=== PATIENT | male | born 1985 | race Caucasian/White ===

== ENCOUNTER 2019-02-26 15:01 | Inpatient (IN) | payer OTHER ==
[2019-02-26 18:05] VITALS: BMI 28.5
--- NOTE | 2019-02-26 19:21 | HP ---
COWS - Scale Resting Pulse: 2= HI 101-120 Sweatin= No chills or Flushing Restless Observation: 1= Difficult to Sit Still Pupil Size: 0= Normal to Room Light Bone or Joint Aches: 0= None Runny Nose/ Eye Tearin= None GI Upset > 30mins: 0= None Tremor Observation: 2= Slight Tremor Visible Yawning Observation: 0= None Anxiety or Irritability: 1=Feels Anxious/Irritable Goose Flesh Skin: 0=Smooth Skin COWS Score: 6 CIWA Score Nausea/Vomitin-Mild Nausea/No Vomiting Muscle Tremors: 4-Moderate,w/Arms Extend Anxiety: 2 Agitation: 3 Paroxysmal Sweats: 1-Minimal Palms Moist Orientation: 0-Oriented Tacttile Disturbances: 0-None Auditory Disturbances: 0-None Visual Disturbances: 1-Very Mild Sensitivity Headache: 1-Very Mild CIWA-Ar Total Score: 13 - Admission Criteria [facility] Guidelines: Admission for Medically Managed Detox: Requires at least one of the followin. CIWA greater than 12 2. Seizures within the past 24 hours 3. Delirium tremens within the past 24 hours 4. Hallucinations within the past 24 hours 5. Acute intervention needed for co occurring medical disorder 6. Acute intervention needed for co occurring psychiatric disorder 7. Severe withdrawal that cannot be handled at a lower level of care (continued vomiting, continued diarrhea, abnormal vital signs) requiring intravenous medication and/or fluids 8. Admission [facility] Chief Complaint: alcohol detox Allergies/Adverse Reactions: Allergies Allergy/AdvReac Type Severity Reaction Status Date / Time No Known Allergies Allergy Verified 02/26/19 17:52 History of Present Illness: Patient is a 33 yo M with no known PMhx presenting for alcohol detox Patient has been drinking heavy for 15 years. Drinks about 1-2 pints of liquor and a few 100 oz of beer a day. Last drink this morning. No hx of seizures. Has blacked out. Patient started using heroin 7/8 years ago. Denies IV use. Says he does not use heroin daily, just occasionally. Used about 8 bags in the last week. 3 bags this morning. He has narcan that he carries in a bag. Says he never overdosed. Does cocaine 3x a week. About 50-100 a day. Smokes 5 cigs a week. Does not want nicotine patch. Currently unemployed. Lives in an apartment with roommates. Exam Limitations: No Limitations - Ebola screening Have you traveled outside of the country in the last 21 days: No (N) Have you had contact with anyone from an Ebola affected area: No Do you have a fever: No - Review of Systems Constitutional: Loss of Appetite Respiratory: denies: Cough, Shortness of Breath Cardiac: denies: Chest Pain, Edema Patient History - Smoking Cessation Smoking history: Current some day smoker Initiated information on smoking cessation: Yes 'Breaking Loose' booklet given: 02/26/19 - Substances abused Heroin Substance route: Inhalation Frequency: 1-2 times per week Amount used: 2 bags/episode Age of first use: 25 Date of last use: 02/26/19 Cocaine Substance route: Inhalation Frequency: 3-6 times per week Amount used: 2 grams Age of first use: 16 Date of last use: 02/26/19 PCP Substance route: Smoking Frequency: 1-2 times per week Amount used: $100 Age of first use: 15 Date of last use: 02/12/19 Benzodiazepine (Klonopin) Substance route: Oral Frequency: 1-3 times last 30 days Amount used: 10 pills Age of first use: 15 Date of last use: 02/19/19 Family Disease History - Family Disease History Family Disease History: Diabetes: Father, Heart Disease: Father Admission Physical Exam [facility] - Vital Signs Vital Signs: Vital Signs - 24 hr 02/26/19 17:56 Temperature 98.0 F Pulse Rate 110 H Respiratory 17 Rate Blood Pressure 135/93 - Physical General Appearance: Yes: Anxious HEENTM: Yes: Other (injected conjunctiva) Respiratory: Yes: No Respiratory Distress, No Accessory Muscle Use Neck: Yes: Supple Cardiology: Yes: Regular Rhythm, S1, S2 Abdominal: Yes: Non Tender, Soft Extremities: No: Swelling Neurological: Yes: Alert - Diagnostic (1) Alcohol abuse Current Visit: Yes Status: Acute (2) Heroin use Current Visit: Yes Status: Acute (3) Cocaine abuse Current Visit: Yes Status: Acute (4) Marijuana smoker Current Visit: Yes Status: Acute Breathalyzer - Breathalyzer Breathalyzer: 0.224 Urine Drug Screen - Test Device Lot number: [id number] Expiration date: 12/06/20 - Control Is test valid?: Yes - Results Drug screen NEGATIVE: No Urine drug screen results: THC-Marijuana, KAE-Cocaine, FEN-Fentanyl, MOP-Opiates , OXY-Oxycodone Inpatient Rehab Admission - Rehab Decision to Admit Inpatient rehab admission?: No
[2019-02-26] MEDS ORDERED: IBUPROFEN 400 MG TABLET (FP) PO PRN (19:54)
[2019-02-26] MEDS ORDERED: MAGNESIUM CITRATE 300 ML BOTTLE PO PRN (19:54)
[2019-02-26] MEDS ORDERED: MAGNESIUM HYDROX 2400MG/30ML ORAL SUSPENSION 30 ML CUP PO PRN (19:54)
[2019-02-26] MEDS ORDERED: hydrOXYzine HCL 25 MG TABLET (FP) PO PRN (19:54)
[2019-02-26] MEDS ORDERED: BISMUTH SUBSALICYLATE 524 MG/30 ML UD PO PRN (19:54)
[2019-02-26] MEDS ORDERED: diazePAM 5 MG TABLET PO ONE (19:54)
[2019-02-26] MEDS ORDERED: MAG HYDROX/AL HYDROX/SIMETH 30 ML UNIT-DOSE CUP PO PRN (19:54)
[2019-02-26] MEDS ORDERED: METHOCARBAMOL 500 MG TABLET PO PRN (19:54)
[2019-02-26] MEDS ORDERED: ACETAMINOPHEN 325 MG TABLET (FP) PO PRN ×2 (19:54)
[2019-02-26] MEDS ORDERED: MENTHOL/PHENOL 1 EACH UD MM PRN (19:54)
[2019-02-26] MEDS ORDERED: MELATONIN 5 MG TABLETS PO PRN (19:54)
[2019-02-26] MEDS ORDERED: diazePAM 5 MG TABLET PO PRN (19:54)
--- NOTE | 2019-02-26 20:01 | PN ---
Teaching Attending Note Name of Resident: Sybil Fernandez ATTENDING PHYSICIAN STATEMENT I saw and evaluated the patient. I reviewed the resident's note and discussed the case with the resident. I agree with the resident's findings and plan as documented. SUBJECTIVE: 33 yo here for AUD treatment OBJECTIVE: Vital Signs - 24 hr 02/26/19 17:56 Temperature 98.0 F Pulse Rate 110 H Respiratory 17 Rate Blood Pressure 135/93 alert and oriented tremulous ASSESSMENT AND PLAN: Pt to be started on valium for AUD
[2019-02-26] MEDS: THIAMINE HCL 100 MG TABLET (FP) PO SCH (22:50)
[2019-02-26] MEDS: diazePAM 5 MG TABLET PO SCH (22:50)
[2019-02-27] MEDS: diazePAM 5 MG TABLET PO SCH ×3 (05:44→22:09)
[2019-02-27] MEDS ORDERED: PRENATAL VITAMINS W/ FOLIC ACID TABLET (FP) PO SCH (10:00)
--- NOTE | 2019-02-27 11:41 | EKG ---
Test Reason : Blood Pressure : / mmHG Vent. Rate : 080 BPM Atrial Rate : 080 BPM P-R Int : 198 ms QRS Dur : 098 ms QT Int : 382 ms P-R-T Axes : 052 075 028 degrees QTc Int : 440 ms NORMAL SINUS RHYTHM INCOMPLETE RIGHT BUNDLE BRANCH BLOCK BORDERLINE ECG WHEN COMPARED WITH ECG OF 26-FEB-2019 21:01, NO SIGNIFICANT CHANGE WAS FOUND Confirmed by ESAU YANES MD ([id number]) on 02/27/2019 11:40:59 AM Referred By: Confirmed By:ESAU YANES MD
[2019-02-27 12:28] LABS: ALBUMIN 3.9 g/dl (3.4-5.0); BILIRUBIN,TOTAL 0.4 mg/dL (0.2-1); BLOOD UREA NITROGEN 10.5 mg/dL (7-18); CALCIUM 8.9 mg/dL (8.5-10.1); CREATININE 0.7 mg/dL (0.55-1.3); POTASSIUM 3.9 mmol/L (3.5-5.1); TOT PROT 7.3 g/dl (6.4-8.2)
[2019-02-27 13:24] LABS: HEMATOCRIT 39.6 % (35.4-49); HEMOGLOBIN 13.2 GM/dL (11.7-16.9); MCH 33.3 pg (25.7-33.7); MCHC 33.4 g/dl (32.0-35.9); MEAN CELL VOLUME 99.8 fl (80-96); MEAN PLT VOLUME 9.5 fl (7.5-11.1); PLATELET COUNT 136 K/MM3 (134-434); RBC 3.97 M/mm3 (4.00-5.60); RDW 13.3 % (11.9-15.9); WHITE BLOOD COUNT 3.4 K/mm3 (4.0-10.0)
--- NOTE | 2019-02-27 13:53 | PN ---
S CIWA - CIWA Score Nausea/Vomitin-No Nausea/No Vomiting Muscle Tremors: 2 Anxiety: 2 Agitation: 2 Paroxysmal Sweats: 2 Orientation: 0-Oriented Tacttile Disturbances: 0-None Auditory Disturbances: 0-None Visual Disturbances: 0-None Headache: 0-None Present CIWA-Ar Total Score: 8 [facility] Progress Note (SOAP) Subjective: sweats shakes interrupted sleep anxiety Objective: 02/27/19 13:52 Vital Signs Temperature 97.5 F L 02/27/19 13:47 Pulse Rate 86 02/27/19 13:47 Respiratory Rate 18 02/27/19 13:47 Blood Pressure 129/90 02/27/19 13:47 O2 Sat by Pulse Oximetry (%) Laboratory Tests 02/27/19 02/27/19 07:30 07:30 WBC 3.4 L RBC 3.97 L Hgb 13.2 Hct 39.6 MCV 99.8 H MCH 33.3 MCHC 33.4 RDW 13.3 Plt Count 136 MPV 9.5 Sodium 144 Potassium 3.9 Chloride 109 H Carbon Dioxide 25 Anion Gap 10 BUN 10.5 Creatinine 0.7 Est GFR (CKD-EPI)AfAm 143.71 Est GFR (CKD-EPI)NonAf 123.99 Random Glucose 118 H Calcium 8.9 Total Bilirubin 0.4 AST 148 H ALT 238 H Alkaline Phosphatase 79 Total Protein 7.3 Albumin 3.9 labs noted elevated ast/alt d/c tylenol repeat labs increase fluids aaox3 ambulating no acute distress Assessment: 02/27/19 13:52 withdrawal sx Plan: continue detox increase fluida repeat labs
[2019-02-27] MEDS: THIAMINE HCL 100 MG TABLET (FP) PO SCH (22:09)
[2019-02-28] MEDS ORDERED: diazePAM 5 MG TABLET PO SCH (06:00)
[2019-02-28 09:45] VITALS: BP 127/77; PULSE 76; TEMP 97.5
[2019-02-28 10:40] LABS: BASO % 0.4 % (0-2.0); EOS % 5.6 % (0-4.5); HEMATOCRIT 40.5 % (35.4-49); HEMOGLOBIN 13.8 GM/dL (11.7-16.9); MCH 33.8 pg (25.7-33.7); MCHC 34.1 g/dl (32.0-35.9); MEAN CELL VOLUME 99.3 fl (80-96); MEAN PLT VOLUME 9.6 fl (7.5-11.1); MONO % 15.5 % (3.8-10.2); NEUT % 37.5 % (42.8-82.8); PLATELET COUNT 145 K/MM3 (134-434); RBC 4.08 M/mm3 (4.00-5.60); RDW 12.7 % (11.9-15.9); WHITE BLOOD COUNT 3.8 K/mm3 (4.0-10.0)
[2019-02-28 10:52] LABS: ALBUMIN 3.9 g/dl (3.4-5.0); BILIRUBIN,TOTAL 0.8 mg/dL (0.2-1); BLOOD UREA NITROGEN 7.3 mg/dL (7-18); CALCIUM 9.2 mg/dL (8.5-10.1); CREATININE 0.8 mg/dL (0.55-1.3); POTASSIUM 4.1 mmol/L (3.5-5.1)
[2019-03-01] MEDS ORDERED: diazePAM 5 MG TABLET PO ONE (06:00)
--- NOTE | 2019-03-04 09:39 | EKG ---
Test Reason : Blood Pressure : / mmHG Vent. Rate : 097 BPM Atrial Rate : 097 BPM P-R Int : 186 ms QRS Dur : 100 ms QT Int : 354 ms P-R-T Axes : 053 080 029 degrees QTc Int : 449 ms NORMAL SINUS RHYTHM INCOMPLETE RIGHT BUNDLE BRANCH BLOCK BORDERLINE ECG NO PREVIOUS ECGS AVAILABLE Confirmed by Jonn Hair MD ([id number]) on 03/04/2019 9:39:05 AM Referred By: TRISH BARRIOS Confirmed By:Jonn Hair MD
== END 2019-02-28 09:20 | disposition home or self-care (01) | DRG 773 ==
LOC: YASAS 15:01 → Y6N 21:00
PROVIDERS: ADMIT Surgery; ATTEND Surgery
PROC: HZ2ZZZZ Detoxification Services for Substance Abuse Treatment (ICD-10-PCS; principal; 2019-02-26)
DX: F10.230 Alcohol dependence with withdrawal, uncomplicated (principal); F11.10 Opioid abuse, uncomplicated; F14.10 Cocaine abuse, uncomplicated; F16.10 Hallucinogen abuse, uncomplicated; F12.10 Cannabis abuse, uncomplicated
CPT/HCPCS: 36415; 80053; 85025; 85027; 86480; 86593; 87389; 93005; 93010